=== PATIENT | female | born 1970 | race Caucasian/White ===

== ENCOUNTER → 2017-01-05 | Outpatient (CLI) | payer OTHER ==
[~2017-01-05] MED LIST: CALCCHW25 CHEW; DONNTAB12 PO; LEVA500T33 PO; LEVO88TA2 PO; LISI-360 PO; LORT5TAB PO; LOSA100T PO; METO25TA3 PO; NORG1TAB29 PO; OMEP20CA5 PO; SUCR1TAB6 PO; TRAM50TA PO; VITA2000 PO
[2017-01-05 11:28] LABS: HEMATOCRIT 37.9 % (35.0-46.0); MEAN CELL VOLUME 88.9 FL (80.0-100.0); MEAN CORPUSCULAR HEMOGLOBIN 30.8 PG (27.0-34.0); MEAN CORPUSCULAR HGB CONC 34.6 % (32.0-36.0); PLATELET COUNT 333 TH/MM3 (150-450); RED BLOOD COUNT 4.26 MIL/MM3 (4.00-5.30); RED CELL DISTRIBUTION WIDTH 12.6 % (11.6-17.2); REVIEW FLAG FINAL; WHITE BLOOD COUNT 7.6 TH/MM3 (4.0-11.0)
[2017-01-05 11:32] LABS: BLOOD, URINE NEG (NEG); GLUCOSE,URINE NEG (NEG); KETONE, URINE NEG (NEG); MUCUS URINE FEW /lpf (OCC); NITRITE,URINE NEG (NEG); PH, URINE 5.5 (5.0-8.5); URINE COLOR LIGHT-YELLOW (YELLW/STRAW)
[2017-01-05 11:54] LABS: ANION GAP 10 MEQ/L (5-15); BICARBONATE 25.5 MEQ/L (21.0-32.0); BLOOD UREA NITROGEN 11 MG/DL (7-18); CHLORIDE 106 MEQ/L (98-107); GLOMERULAR FILTRATION RATE 62 ML/MIN (>89); POTASSIUM 3.5 MEQ/L (3.5-5.1); SODIUM (NA) 141 MEQ/L (136-145)
[2017-01-05 12:02] LABS: BHCG SCREEN QUALITATIVE LESS THAN 1 MIU/ML (0-5)
== END ==
LOC: CPRE 10:21
PROVIDERS: ATTEND Obstetrics & Gynecology
DX: Z01.812 Encounter for preprocedural laboratory examination (principal); D25.9 Leiomyoma of uterus, unspecified
CPT/HCPCS: 36415; 80048; 81001; 84703; 85027; 86850; 86900; 86901

== ENCOUNTER 2017-01-07 08:24 | Day surgery (SDC) | payer OTHER ==
[~2017-01-07] VITALS: Ht 165.1 cm; Wt 101.2 kg
[~2017-01-07 08:24] MED LIST changes: -DONNTAB12 PO; -LEVA500T33 PO; -LISI-360 PO; -LORT5TAB PO; -OMEP20CA5 PO; -SUCR1TAB6 PO
[2017-01-07 08:36] VITALS: BP 153/90; PULSE 66; RESP 16; TEMP 98.6; O2SAT 99
[2017-01-07] MEDS ORDERED: APREPITANT 40 MG CAP ONE (08:45)
[2017-01-07] MEDS ORDERED: ceFAZolin 2 GM PREMIX 50 ML ONE (08:45)
[2017-01-07] MEDS ORDERED: ceFAZolin 2 GM PREMIX 50 ML IV SCH (09:00)
[2017-01-07] MEDS ORDERED: POVIDONE IODINE 5% (ANTISEPSIS KIT) 4 APPLICATIONS EACH NARE PRN (09:00)
[2017-01-07] MEDS ORDERED: APREPITANT 40 MG CAP PO SCH (09:00)
[2017-01-07] MEDS ORDERED: LACTATED RINGER'S 1000 ML IV PRN (09:00)
[2017-01-07] MEDS ORDERED: SODIUM CHLORID 0.9% 500 ML IV PRN (09:00)
[2017-01-07] MEDS ORDERED: INSULIN HUMAN REGULAR 1,000 UNITS/10 ML VIAL SQ PRN (09:00)
[2017-01-07] MEDS ORDERED: METOPROLOL TARTRATE 25 MG TAB PO PRN (09:00)
[2017-01-07] MEDS ORDERED: CHLORHEXIDINE GLUCONATE 2 % 1 PACK (2 CLOTHS) TOPICAL PRN (09:00)
[2017-01-07] MEDS ORDERED: FAMOTIDINE 20 MG/2 ML VIAL ONE (09:24)
[2017-01-07] MEDS ORDERED: ACETAMINOPHEN 1000 MG/100 ML VIAL IV ONE (10:02)
[2017-01-07] MEDS ORDERED: fentaNYL CITRATE 250 MCG/5 ML AMP ONE ×2 (10:02→13:43)
[2017-01-07] MEDS ORDERED: MIDAZOLAM HCL 2 MG/2 ML VIAL ONE (10:02)
[2017-01-07] MEDS ORDERED: ARTIFICIAL TEARS OPTH OINT 3.5 APPLIC/3.5 GM TUBO ONE (10:02)
[2017-01-07] MEDS ORDERED: SUGAMMADEX SODIUM 200 MG/2 ML VIAL IV PUSH ONE ×2 (10:03)
[2017-01-07] MEDS ORDERED: BUPIVACAINE HCL PF 0.25% 30 ML VIAL ONE (10:19)
[2017-01-07] MEDS ORDERED: ePHEDrine/NS 25 MG/5 ML SYR IV ONE (12:00)
[2017-01-07] MEDS ORDERED: ONDANSETRON HCL 4 MG/2 ML VIAL IV PUSH ONE (12:00)
[2017-01-07] MEDS ORDERED: NORMOSOL R INJ 1,000 ML IV ONE (12:00)
[2017-01-07] MEDS ORDERED: PROPOFOL 200 MG/20 ML AMP IV ONE (12:00)
[2017-01-07] MEDS ORDERED: VECURONIUM BROMIDE 10 MG VIAL IV ONE (12:00)
[2017-01-07] MEDS ORDERED: PHENYLEPH/NS 1000 MCG/10 ML SYR IV ONE (12:00)
[2017-01-07] MEDS ORDERED: LACTATED RINGER'S 1000 ML INJ 1,000 ML IV SCH (13:11)
[2017-01-07] MEDS ORDERED: oxyCODONE/ACETAMINOPHEN 5 MG/325 MG TAB PO PRN ×2 (13:15)
[2017-01-07] MEDS ORDERED: KETOROLAC TROMETHAMINE 30 MG/ML (IVP) VIAL IVP PRN (13:15)
[2017-01-07] MEDS ORDERED: IBUPROFEN 600 MG TAB PO PRN (13:15)
[2017-01-07] MEDS ORDERED: LORazepam 0.5 MG TAB PO PRN (13:15)
[2017-01-07] MEDS ORDERED: ONDANSETRON HCL 4 MG/2 ML VIAL IVP PRN (13:15)
[2017-01-07] MEDS ORDERED: HYDROmorphone HCL PF 1 MG/ML VIAL IVP PRN (13:15)
[2017-01-07] MEDS ORDERED: SODIUM CHLORIDE 0.9% FLUSH 10 ML FLUSH IV FLUSH SCH (13:15)
[2017-01-07] MEDS ORDERED: SODIUM CHLORIDE 0.9% FLUSH 10 ML FLUSH IV FLUSH PRN (13:15)
[2017-01-07] MEDS ORDERED: *morphine SULFATE 8 MG/ML PERIprocedure ONLY ONE ×2 (13:57→14:15)
[2017-01-07] MEDS ORDERED: DO NOT ADM ANY ANTICOAGULANT DRUGS PRN (14:30)
[2017-01-07] MEDS ORDERED: *ONDANSETRON 4 MG VIAL PERIprocedural Use ONLY ONE (14:37)
[2017-01-07] MEDS ORDERED: PROMETHAZINE INJ 25 MG/ML VIAL ONE (16:25)
[2017-01-07 17:17] VITALS: BP 118/82; PULSE 74; RESP 18; TEMP 97.8; O2SAT 100
[2017-01-07] MEDS ORDERED: DOCUSATE SODIUM 100 MG CAP PO SCH (21:00)
--- NOTE | 2017-01-08 07:44 | MP ---
cc: [facility] DATE OF 1970 DATE OF PROCEDURE January 07, 2017 PREOPERATIVE DIAGNOSIS Symptomatic large uterine fibroids with menorrhagia. PROCEDURE Robotic-assisted laparoscopic total hysterectomy with right salpingectomy. Cystourethroscopy. POSTOPERATIVE DIAGNOSIS Symptomatic large uterine fibroids with menorrhagia. SURGEON MD Eyal ANESTHESIA General with endotracheal intubation. ESTIMATED BLOOD LOSS 100 cc. DRAINS Vieira to gravity. OPERATIVE FINDINGS The patient had a large lobulated uterus previously known by imaging studies. The uterus was in excess of 16 weeks' size with a large posterior myoma. The ovaries were normal. The patient has had some scar tissue involving the posterior cul-de-sac, otherwise the remainder of the anatomic survey was benign. Upper quadrants appeared normal as well. INDICATIONS FOR PROCEDURE Patient with recurrent heavy menstrual bleeding. Workup revealed large multilobulated uterus consistent with uterine fibroids. Pap smear and endometrial biopsy were normal. The patient was offered several options and she elected for hysterectomy. Laparoscopic approach was discussed. She consented for use of the robotic da Evgeny and consent was signed. The patient received Ancef 2 grams prophylactically. PROCEDURE DESCRIPTION The patient was taken to the operating room in stable condition, underwent general anesthesia with endotracheal intubation. She was carefully positioned in dorsal lithotomy position using Jackson stirrups on the lower extremities. She had sequentials placed on her lower extremities bilaterally for VTE prophylaxis. She was prepped and draped. A time-out was conducted and agreed by all present in the room. Vieira catheter was then inserted by sterile technique without complication. The cervix was visualized then with a bivalve retractor placing a large V-Care device through the cervical os and securing it. The retractor was removed. Gloves were changed. The abdomen was examined. She had a somewhat obese abdomen. No definitive scars. The umbilical port site was chosen first, injecting it with 0.25% plain Marcaine and using a 5-mm visible port trocar, placing it directly into the peritoneal cavity without complication. The patient was then insufflated at low pressure and then placed in steep Trendelenburg positioning allowing visualization of the pelvis. Accessory ports were placed using two ports on the right and one port on the left. These were placed in an avascular plane and then to converting the umbilical port to a 12-mm camera port. The [employer] patient cart was then side-docked, the #2 arm on the patient's left and #1 and #3 on the right. Monopolar scissors were connected to the #2 arm. A bipolar fenestrated grasper was in the #1 arm and the #3 arm had a atraumatic grasper placed. There were no collisions. Good articulation was noted. Attention was directed to the surgeon cart where visualization through the monitor was clear. All anatomic landmarks were identified first, identifying both ovaries as normal. The patient requested they be left in place if they were normal. Initial dissection was started on the right, opening at the round ligament and dissecting retroperitoneally anteriorly and laterally to open the broad ligament and then identifying the uterine ovarian vessels, skeletonizing them appropriately and then ligating them hemostatically. The fallopian tube mesentery on the right was opened hemostatically allowing the fallopian tube to be taken intact with the uterus. The uterine artery and vein were then selectively skeletonized on the right and then ligated using bipolar energy. The continuation of dissection required attention on the left side where the round ligament was identified and ligated allowing dissection of the retroperitoneum as well. The anterior bladder reflection was dissected away from the lower uterine segment by a combination of sharp dissection using cold and hot scissors. The bladder was not affected by the dissection. The uterine artery and vein were then skeletonized on the left side, again paying careful attention after separation of the uterine ovarian pedicle hemostatically. Both ureters were visualized easily and peristalsing through the case, no active bleeding or blood in the Vieira catheter was noted. Once the vessels were secured. The posterior colpotomy incision was made using the monopolar scissors and then, due to the large volume of the uterus, the uterus was bivalved using the monopolar scissors on a cutting setting. This allowed separation of the uterus to be retrieved vaginally. Once this was complete, the remainder of the colpotomy incision was made connecting it to the posterior colpotomy anteriorly, again using the monopolar scissors. The tissue specimens were grabbed by the academic affairs assistant through the vagina with a tenaculum and then retrieved through the opening. Both parts of the uterus were sent together once they were removed. No active bleeding or hematoma was identified. The #2 to arm was replaced with a suture cut needle dump truck driver off highway and then a #2 Stratafix unidirectional suture was entered through the vaginal opening by the academic affairs assistant to allow closure of the cuff. The cuff was closed in a linear fashion starting from the left angle and closing it in a simple running fashion to the contralateral side with good result. Good integrity was checked. The academic affairs assistant placed a sponge stick into the vaginal vault to test the integrity of the closure which was excellent. At the completion of the closure the suture needle was trimmed, keeping the suture flush with the peritoneum. The needle was secured in the anterior abdominal compartment for later retrieval. At the completion of the case, both ovaries were visualized and normal. There was no hematoma. The bladder and ureters were intact. The da Evgeny patient cart was then undocked. Straight laparoscopy was reintroduced. Visualization of the anatomy again was made. The suture needle was retrieved. Full count was made and correct. The pelvis and abdomen were irrigated with copious normal saline to retrieve any small blood clots or tissue fragments. Observation of the operative site off pressure was dry. There was no active bleeding or oozing or hematoma. At the completion of the procedure, the umbilical port was then closed with a CrossBow closure device using a #1 Vicryl suture under direct vision allowing a good closure of the umbilical port. The smaller lateral ports were then opened to allow decompression of the pneumoperitoneum and once this was complete the trocars were removed intact. The incisions were closed with a subcuticular suture of 4-0 Monocryl, Steri-Strips and Band-Aids as was the umbilical incision. The final count was correct. The patient was stable. A simple cystourethroscopy was performed using the 5-mm laparoscope. The bladder was back-filled with sterile normal saline and then the Vieira was removed. The laparoscope instrument was introduced through the urethra atraumatically under direct vision using a video camera. The integrity of the bladder was documented. There was no interruption, no suture placement, no perforation. The ureters were peristalsing normally into the bladder with good flow and jetting. At the completion of the cystourethroscopy the scope was removed. The Vieira catheter was reinserted, draining clear urine. Simple reexamination of the vaginal vault proved dry and at the completion of the case the final count was correct. The patient was extubated and taken to the recovery room on room air. MD BEN Gonzalez/TASHIA /4:24 PM /7:03 AM
== END 2017-01-07 17:31 | disposition home or self-care (01) ==
LOC: HSDC 08:24
PROVIDERS: ATTEND Obstetrics & Gynecology
DX: D25.9 Leiomyoma of uterus, unspecified (principal); N92.0 Excessive and frequent menstruation with regular cycle; N72 Inflammatory disease of cervix uteri; N80.0 Endometriosis of uterus
CPT/HCPCS: 00840; 58554; 88307; J0131; J0690; J2250; J2270; J2370; J2405; J2550; J3010; J7120; J8501